=== PATIENT | male | born 1995 | race African-American/Black ===

== ENCOUNTER 2017-01-02 09:25 | Emergency (ER) | payer SELFPAY ==
[~2017-01-02] VITALS: Ht 172.7 cm; Wt 95.3 kg
[~2017-01-02 09:25] MED LIST: IBUPROFEN600 MG ORAL; NKM
[2017-01-02 10:13] VITALS: BP 138/81
--- NOTE | 2017-01-02 10:29 | Emergency Room Report ---
History of Present Illness General Chief Complaint: Upper Extremity Injury Source: Patient Present Illness HPI Patient presents with complaints of trauma to the right hand Mainly the small finger patient reports that he hit a wall he is right-hand dominant Pain is 5/10 worse with movement Denies any chest pain or shortness of breath denies any other injury He reports discomfort to the fourth proximal metacarpal as well Denies any neuropathy Allergies: Coded Allergies: No Known Allergies (Unverified , 11/10/13) Patient History Past Medical History: see triage record Pertinent Family History: none Reviewed Nursing Documentation: PMH: Agreed, PSxH: Agreed Nursing Documentation-PMH Past Medical History: No History, Except For Review of Systems All Other Systems: negative except mentioned in HPI Physical Exam Vital Signs Date Time Temp Pulse Resp B/P Pulse Ox O2 Delivery O2 Flow Rate FiO2 01/02/17 09:35 98.2 96 16 138/81 100 Room Air Sp02 EP Interpretation: reviewed, normal General Appearance: well appearing, no apparent distress Head: normocephalic, atraumatic Eyes: bilateral eye EOMI, bilateral eye PERRL ENT: normal pharynx Neck: full range of motion, supple Respiratory: lungs clear, normal breath sounds Cardiovascular #1: regular rate, rhythm Musculoskeletal: other - Tender on flexion distally of the right small finger has some mild discomfort proximally on the fourth finger as well small abrasion on the index finger on the same right hand neurologically and neurovascularly intact otherwise, Neurologic: alert, oriented x3, responsive Skin: normal color, no rash, warm/dry Lymphatic: no adenopathy Procedures Splinting Splinting : Consent: Verbal Location: Right small finger Pre-Made Type: metal Splint: finger splint Pre-Proc Neuro Vasc Exam: normal Post-Proc Neuro Vasc Exam: normal Patient Tolerated: Well Complications: None Medical Decision Making Diagnostic Impression: Primary Impression: finger sprain ER Course Patient's x-ray imaging at this time is negative no signs of any other cuts or lacerations patient was provided with a splint for symptomatic improvement And discharged in stable condition Other X-Ray Diagnostic Results Other X-Ray Diagnostic Results : EP Interpretation: Yes Findings: no fractures, no dislocation, no soft tissue swelling Number of Views: 3 - right hand Last Vital Signs Date Time Temp Pulse Resp B/P Pulse Ox O2 Delivery O2 Flow Rate FiO2 01/02/17 10:13 98.2 78 16 138/81 100 Room Air Status: improved Disposition: HOME, SELF-CARE Condition: Improved Patient Instructions: Finger Sprain, [id number] Additional Instructions: Patient is provided with the discharge instructions notified to follow up with primary doctor in the next 2-3 days otherwise return to the er with any worsening symptoms. Please note that this report is being documented using DRAGON technology. This can lead to erroneous entry secondary to incorrect interpretation by the dictating instrument. ALEE LAY D.O. Jan 02, 2017 10:29
[2017-01-02 10:36] VITALS: BP 138/81
--- NOTE | 2017-01-03 07:59 | Diagnostic Imaging Report ---
Indications: Right hand pain Technique: 3 views of the right hand. Findings: Comparison: 01/30/2016. Overlapping fingers on lateral view limits evaluation. No fracture, dislocation, lytic destruction, periosteal reaction, surrounding soft tissue swelling, or other acute changes are demonstrated. No deformity, alignment abnormality, arthritic change, soft tissue calcification, or other chronic changes are demonstrated. IMPRESSION: Negative right hand series, limited as described.
== END 2017-01-02 10:45 | disposition home or self-care (01) ==
LOC: EMR 09:45
DX: S63.616A Unspecified sprain of right little finger, initial encounter (principal); S63.690A Other sprain of right index finger, initial encounter; S60.410A Abrasion of right index finger, initial encounter; W22.01XA Walked into wall, initial encounter; Y92.9 Unspecified place or not applicable
CPT/HCPCS: 29130; 99283

== ENCOUNTER 2017-02-19 12:14 | Emergency (ER) | payer OTHER ==
[~2017-02-19] VITALS: Ht 175.3 cm; Wt 79.4 kg
[2017-02-19] MEDS ORDERED: Norco 5mg/325mg tab ORAL ONE (13:00)
[2017-02-19] MEDS ORDERED: TRAMADOL HCL50 MG ORAL (13:27)
[2017-02-19] MEDS ORDERED: IBUPROFEN600 MG ORAL (13:27)
[2017-02-19 13:30] VITALS: BP 142/88
[2017-02-19 13:58] VITALS: BP 142/88
--- NOTE | 2017-02-19 14:19 | Diagnostic Imaging Report ---
Indication: PAIN Technique: 3 views right hand Comparison: none Findings: There is a minimally displaced slightly distracted fracture of the fifth metacarpal neck. Surrounding soft tissue swelling. No other acute fractures. No dislocations. Joint spaces are preserved. Impression: Positive for fifth metacarpal fracture Findings discussed by phone with Dr. Ibrahim in the emergency room at the time of interpretation
--- NOTE | 2017-02-19 20:46 | Emergency Room Report ---
History of Present Illness General Chief Complaint: Upper Extremity Injury Source: Patient Present Illness HPI The patient is a 21-year-old male presenting for right hand pain. The patient states that he was skateboarding and fell onto his right hand with a closed fist. He is now complaining of 10 out of 10 dull ache. Pain does not radiate. Pain worse with touch. He admits to previous injury of the hand but is unsure of what it was. He denies any other injury. He denies any other symptoms Allergies: Coded Allergies: No Known Allergies (Unverified , 11/10/13) Patient History Past Medical History: see triage record Pertinent Family History: none Reviewed Nursing Documentation: PMH: Agreed, PSxH: Agreed Nursing Documentation-PMH Past Medical History: No Stated History Review of Systems All Other Systems: negative except mentioned in HPI Physical Exam Vital Signs Date Time Temp Pulse Resp B/P Pulse Ox O2 Delivery O2 Flow Rate FiO2 02/19/17 12:34 98.8 97 16 146/90 99 Room Air Sp02 EP Interpretation: reviewed, normal General Appearance: no apparent distress, alert, GCS 15, non-toxic Head: normocephalic, atraumatic Eyes: bilateral eye PERRL, bilateral eye normal inspection Musculoskeletal: normal range of motion, swelling, tender - TTP over the R distal 5th MC Neurologic: alert, oriented x3, responsive, motor strength/tone normal, sensory intact, speech normal Psychiatric: judgement/insight normal, memory normal, mood/affect normal, no suicidal/homicidal ideation Skin: normal color, no rash, warm/dry, well hydrated Lymphatic: no adenopathy Procedures Splinting Splinting : Consent: Verbal Location: R hand Hand-Made Type: plaster Splint: ulnar Pre-Proc Neuro Vasc Exam: normal Post-Proc Neuro Vasc Exam: normal Patient Tolerated: Well Complications: None Medical Decision Making PA Attestation Dr. Ibrahim is my supervising physician. Patient management was discussed with my supervising physician Diagnostic Impression: Primary Impression: Boxers fracture Qualified Codes: S62.309A - Unspecified fracture of unspecified metacarpal bone, initial encounter for closed fracture ER Course The patient is a 21-year-old male presenting for right hand pain. Ddx considered include but not limited to sprain/strain, fracture, contusion Physical exam: No apparent distress There is edema and tenderness to palpation over the right distal fifth metacarpal. Full active range of motion Radial pulse 2+ X-ray reveals a fracture of the distal fifth metacarpal Ulnar gutter splint is placed The patient is discharged home with pain medications. He'll follow up with PMD and possibly orthopedics. ER precautions given Chest X-Ray Diagnostic Results Chest X-Ray Ordered: No Other X-Ray Diagnostic Results # of Views/Limited Vs Complete: 3 View Interpretation: no dislocation, no soft tissue swelling, other - Fx of 5th Indication: Pain Impression: Other - fracture Date Electronically Signed: Feb 19, 2017 Time Electronically Signed: 20:45 Electronically Signed by: Dr. Patrice DALY Scribe Text I am acting as scribe for my supervising physician. My supervising physician's interpretation of the R hand xrays are there is a fracture of the 5th Last Vital Signs Date Time Temp Pulse Resp B/P Pulse Ox O2 Delivery O2 Flow Rate FiO2 02/19/17 13:58 98.8 78 17 142/88 100 Room Air Status: improved Disposition: HOME, SELF-CARE Condition: Improved Scripts Ibuprofen* (MOTRIN*) 600 Mg Tablet 600 MG ORAL Q8H Y for For Pain, #30 TAB 0 Refills Prov: JUAN JOSÉ JUSTICE P.A. 02/19/17 Tramadol Hcl* (ULTRAM*) 50 Mg Tablet 50 MG ORAL Q6H Y for For Pain, #30 TAB 0 Refills Prov: JUAN JOSÉ JUSTICE P.A. 02/19/17 Referrals: [facility],REFERRING (PCP) Patient Instructions: Boxer's Fracture Additional Instructions: I discussed my findings with the patient. All questions and concerns have been answered. Treatment and medication compliance have been addressed. I advised the patient that they need to follow up with PMD in 3-5 days. Return to ED if pain remains or worsens, numbness or tingling occurs, new rash is noticed, fever is noticed, or if needed for any reason. Patient verbalized understanding of discharge instructions. JUAN JOSÉ JUSTICE Feb 19, 2017 20:46
== END 2017-02-19 13:58 | disposition home or self-care (01) ==
LOC: EMR 12:56
DX: S62.306A Unspecified fracture of fifth metacarpal bone, right hand, initial encounter for closed fracture (principal); W18.30XA Fall on same level, unspecified, initial encounter; Y93.51 Activity, roller skating (inline) and skateboarding; Y99.9 Unspecified external cause status
CPT/HCPCS: 29125; 99283

== ENCOUNTER 2017-08-15 06:19 | Emergency (ER) | payer MEDICAID, OTHER ==
[~2017-08-15] VITALS: Ht 175.3 cm; Wt 84.4 kg
[~2017-08-15 06:19] MED LIST changes: +TRAMADOL HCL50 MG ORAL
[2017-08-15] MEDS ORDERED: IBUPROFEN600 MG ORAL (06:41)
[2017-08-15] MEDS ORDERED: CLINDAMYCIN HC300 MG ORAL (06:41)
[2017-08-15] MEDS ORDERED: Clindamycin 150mg cap ORAL SCH (06:45)
--- NOTE | 2017-08-15 06:45 | Emergency Room Report ---
History of Present Illness General Chief Complaint: Pain Source: Patient Present Illness HPI 21-year-old male walks in with right-sided facial swelling that occurred overnight States that yesterday was normal this morning woke up right-sided face was swollen denies any fever or chills States has a tooth that fell out a couple weeks ago and the area on the upper right side of his mouth Hasn't been to the dentist in a while No pus drainage from mouth No history of diabetes or previous abscess Allergies: Coded Allergies: No Known Allergies (Unverified , 11/10/13) Patient History Past Medical History: none Past Surgical History: none Pertinent Family History: none Social History: Denies: smoking, alcohol use, drug use Immunizations: UTD Reviewed Nursing Documentation: PMH: Agreed, PSxH: Agreed Review of Systems All Other Systems: negative except mentioned in HPI Physical Exam Vital Signs Date Time Temp Pulse Resp B/P (MAP) Pulse Ox O2 Delivery O2 Flow Rate FiO2 08/15/17 06:23 98.1 88 16 143/98 96 Room Air Sp02 EP Interpretation: reviewed, normal General Appearance: normal inspection, well appearing, no apparent distress, alert, GCS 15, non-toxic Head: normocephalic, atraumatic Eyes: bilateral eye PERRL, bilateral eye EOMI ENT: normal ENT inspection, hearing grossly normal, normal pharynx, normal voice, other - Upper right side of mouth lateral to upper row of teeth there is a 1 cm abscess next to a empty socket, tender to palpation Neck: normal inspection, full range of motion, supple, no bony tend Respiratory: normal inspection, lungs clear, normal breath sounds, no respiratory distress, no retraction, no wheezing Cardiovascular #1: regular rate, rhythm, no edema Gastrointestinal: normal inspection, normal bowel sounds, non tender, soft, no guarding, no hernia Genitourinary: no CVA tenderness Musculoskeletal: normal inspection, back normal, normal range of motion, Yue' s Sign negative Neurologic: normal inspection, alert, oriented x3, responsive, five piece expansion maker hand III-XII nml as tested, speech normal Psychiatric: normal inspection, judgement/insight normal, mood/affect normal Skin: normal inspection, normal color, no rash Medical Decision Making Diagnostic Impression: Primary Impression: Oral abscess ER Course 21-year-old male with right-sided upper mouth oral abscess Possibly related to poor dentition Signs stable Afebrile No fever or chills, not septic or ill-appearing Prescription for clindamycin and ibuprofen provided ER course: Patient has remained stable during ED stay. Patient is to be discharged to home. Prescriptions given are motrin, clinda Patient is instructed to follow up with their primary care doctor within 5 days. Strict return precautions discussed with patient such as fever, chills, worsening/severe pain, nausea, vomiting, which may indicate severe illness. Patient verbalizes understanding and agrees with plan. Please note that this Emergency Department Report was dictated using ID8-Mobileautomatic winder operator technology software, occasionally this can lead to erroneous entry secondary to interpretation by the dictation equipment Last Vital Signs Date Time Temp Pulse Resp B/P (MAP) Pulse Ox O2 Delivery O2 Flow Rate FiO2 08/15/17 06:23 98.1 88 16 143/98 96 Room Air Status: improved Disposition: HOME, SELF-CARE Condition: Improved Scripts Ibuprofen* (MOTRIN*) 600 Mg Tablet 600 MG ORAL THREE TIMES A DAY for For Pain for 7 Days, #30 TAB 0 Refills Prov: AMALIA DOUGLAS M.D. 08/15/17 Clindamycin Hcl (CLINDAMYCIN HCL) 300 Mg Capsule 300 MG ORAL THREE TIMES A DAY for 7 Days, #21 CAP Prov: AMALIA DOUGLAS M.D. 08/15/17 Patient Instructions: Dental Abscess, [id number] Additional Instructions: - Take ALL antibiotics until finished - Take motrin every 8 hours with food as needed for pain - Return to ER if no improvement in 5 days AMALIA DOUGLAS M.D. Aug 15, 2017 06:45
[2017-08-15 07:00] VITALS: BP 137/92
[2017-08-15 07:01] VITALS: BP 143/98
== END 2017-08-15 07:00 | disposition home or self-care (01) ==
LOC: EMR 06:58
DX: K12.2 Cellulitis and abscess of mouth (principal)
CPT/HCPCS: 99283

== ENCOUNTER 2018-02-13 10:46 | Emergency (ER) | payer OTHER ==
[~2018-02-13] VITALS: Ht 175.3 cm; Wt 97.5 kg
[~2018-02-13 10:46] MED LIST changes: +CLINDAMYCIN HC300 MG ORAL
--- NOTE | 2018-02-13 11:20 | Emergency Room Report ---
History of Present Illness General Chief Complaint: Lower Extremity Injury Source: Patient Present Illness HPI Patient is a 22-year-old male who presented after increased right-sided ankle pain. The patient reports injuring his right ankle while skateboarding. He reports inverting his right ankle. He reports initially being able to ambulate. Patient subsequent not able to bear weight on his ankle. The patient denies any numbness or tingling. The patient noticed increased swelling. The pain is described as a throbbing sensation. The pain is localized to the right side of the ankle. Allergies: Coded Allergies: No Known Allergies (Unverified , 11/10/13) Patient History Past Medical History: see triage record Reviewed Nursing Documentation: PMH: Agreed; PSxH: Agreed Nursing Documentation-PMH Past Medical History: No Stated History Review of Systems All Other Systems: negative except mentioned in HPI Physical Exam Vital Signs Date Time Temp Pulse Resp B/P (MAP) Pulse Ox O2 Delivery O2 Flow Rate FiO2 02/13/18 10:57 98.1 82 16 147/90 98 Room Air 98.1 General Appearance: well appearing, no apparent distress, alert, GCS 15 Head: normocephalic, atraumatic ENT: hearing grossly normal, normal voice Neck: full range of motion, supple Respiratory: no respiratory distress, speaking full sentences Gastrointestinal: normal inspection Musculoskeletal: back normal, digits/nails normal, gait/station normal, no calf tenderness, decreased range of mation, swelling Neurologic: normal inspection, alert, oriented x3, responsive, normal gait Psychiatric: mood/affect normal Skin: no rash Medical Decision Making Diagnostic Impression: Primary Impression: Inversion sprain of right ankle ER Course Patient presented for ankle pain. Differential diagnosis included was not limited to sprain, fracture, dislocation, cellulitis, vascular insufficiency. X -ray imaging of the ankle was ordered. X-ray imaging of the right ankle 3 views interpreted by me showed normal bony alignment without evident fracture soft tissue swelling was noted. The patient placed in an Mic wrap and given crutches.The patient is advised to follow up with primary care doctor in 1-2 days. Patient is advised to return if any worsening condition or if any changes in status that are concerning. This report is dictated with [employer]uork paratransit driver software which may occasionally lead to discrepancies related to use of this software. Last Vital Signs Date Time Temp Pulse Resp B/P (MAP) Pulse Ox O2 Delivery O2 Flow Rate FiO2 02/13/18 11:11 98.1 02/13/18 10:57 82 16 147/90 98 Room Air Status: improved Disposition: HOME, SELF-CARE Condition: Stable Scripts Ibuprofen* (MOTRIN*) 600 Mg Tablet 600 MG ORAL Q8H PRN for For Pain, #30 TAB 0 Refills Prov: Julio C Balderas MD 02/13/18 Julio C Balderas MD Feb 13, 2018 11:20
[2018-02-13] MEDS ORDERED: IBUPROFEN600 MG ORAL (12:27)
[2018-02-13 13:12] VITALS: BP 147/90
--- NOTE | 2018-02-14 08:22 | Diagnostic Imaging Report ---
Indication: Reason For Exam: PAIN Technique: 3 views of the right ankle Comparison: Findings: No acute fractures. No dislocations. Joint spaces are preserved. Normal mineralization. No radiopaque foreign body. Impression: Negative
== END 2018-02-13 13:00 | disposition home or self-care (01) ==
LOC: EMR 11:23
DX: S93.401A Sprain of unspecified ligament of right ankle, initial encounter (principal); X50.1XXA Overexertion from prolonged static or awkward postures, initial encounter; Y93.51 Activity, roller skating (inline) and skateboarding; Y92.9 Unspecified place or not applicable
CPT/HCPCS: 99283

== ENCOUNTER → 2018-04-11 | Day surgery (SDC) | payer OTHER ==
[2018-04-11] VITALS (11 sets, daily range): BP systolic 139–164; BP diastolic 91–112
[~2018-04-11] VITALS: Ht 175.3 cm; Wt 97.5 kg
[~2018-04-11] MED LIST changes: +Bacitracin 50000 Units Vial ONE; +Bacitracin Oint 15gm Tube TOPIC ONE; +Bupivacaine 0.25% Inj 30ml INJ ONE; +CEPHALEXIN500 MG ORAL; +D5 1/2NS 1,000 ML IV SCH; +DiphenhydrAMINE 50mg/ml Inj IVP PRN; +HYDROcodone/Acetamin 7.5/325 tab ORAL ONE; +HYDROmorphone 1mg/ml Carpuject SUBQ PRN; +Hydrogen Peroxide 473ml Bottle TOPIC ONE; +LR 1000ml 1,000 ML IVLG SCH; +LR 1000ml ONE; +Labetalol 5mg/ml 20ml vial IV ONE; +Labetalol 5mg/ml 20ml vial IV PRN; +Lidocaine 1% MPF 10mg/ml 5ml ONE; +Lidocaine 1% Plain 30 ml INJ ONE; +Meperidine 50mg/ml Inj(FOR RIGORS ONLY) IVP PRN; +Midazolam 2mg/2ml Inj IVP PRN; +Midazolam 2mg/2ml Inj ONE; +Morphine Sulfate 2mg/ml Inj(IV/IM USE ONLY) IVP ONE; +NORCO 10-325 T1 EACH ORAL; +NS Irrig 1000ml ONE; +Norco 5mg/325mg tab ORAL PRN; +PERCOCET 5-3251 EACH ORAL; +Propofol 200mg/20ml IV ONE; +Sterile Water Irrig 1000ml IRRIG ONE; +Succinylcholine 20mg/ml 10ml vial ONE; +Tetanus/Diptheria/Pertussis Vaccine 0.5ml Syr IM ONE; +Tylenol #3 tab (300mg/30mg) ORAL PRN; +ceFAZolin 1gm/50ml Premix 50 ML IV ONE; +fentaNYL 100 mcg/2 mL IV ONE
--- NOTE | 2018-04-11 15:21 | Diagnostic Imaging Report ---
Indication: Pain, laceration after punching glass Technique: 3 views right hand Comparison: none Findings: Numerous radiopaque foreign bodies are seen within the soft tissues of the second digit. No definite underlying bony abnormality is evident. No acute fractures. No dislocations. Impression: No acute bony trauma Positive for radiopaque foreign bodies within the second digit, presumably glass fragments given stated clinical history
--- NOTE | 2018-04-11 16:52 | Emergency Room Report ---
History of Present Illness General Chief Complaint: Laceration Source: Patient Present Illness HPI 22-year-old male presents to the emergency department complaining of 8 out of 10 in severity localized pain, bleeding and swelling to the left index finger. Patient status post punching through a glass. Patient reports numbness along the side of his index finger. He states he is up-to-date with tetanus vaccinations and is not taking blood thinning medications. Movement exacerbates his pain. Allergies: Coded Allergies: No Known Allergies (Unverified , 11/10/13) Patient History Past Medical History: see triage record Past Surgical History: none Pertinent Family History: none Immunizations: UTD Reviewed Nursing Documentation: PMH: Agreed; PSxH: Agreed Nursing Documentation-PMH Past Medical History: No History, Except For Review of Systems All Other Systems: negative except mentioned in HPI Physical Exam Vital Signs Date Time Temp Pulse Resp B/P (MAP) Pulse Ox O2 Delivery O2 Flow Rate FiO2 04/11/18 14:04 98.3 91 18 139/91 98 Room Air 98.2 Sp02 EP Interpretation: reviewed, normal General Appearance: no apparent distress, alert, GCS 15, non-toxic Head: normocephalic, atraumatic ENT: hearing grossly normal, normal voice Neck: full range of motion Respiratory: lungs clear, normal breath sounds, speaking full sentences Cardiovascular #1: regular rate, rhythm, no edema Musculoskeletal: back normal, gait/station normal, normal range of motion, tender - TTP to the PIP joint area of the left index finger, laceration noted. numbness to lateral aspect, limited ROM pasively. normal cap refill Neurologic: alert, oriented x3, responsive, motor strength/tone normal, sensory intact, normal gait, speech normal, grossly normal Psychiatric: judgement/insight normal Skin: normal color, no rash, warm/dry, well hydrated, laceration - to the lateral aspect of the left index finger at the level of the PIP joint area approximately 4.5cm in length Medical Decision Making PA Attestation Dr. james is my supervising Physician whom patient management has been discussed with. Diagnostic Impression: Primary Impression: Digital nerve laceration, finger Qualified Codes: S64.40XA - Injury of digital nerve of unspecified finger, initial encounter Additional Impressions: Laceration of digital artery Qualified Codes: S65.519A - Laceration of blood vessel of unspecified finger, initial encounter Fracture of finger, proximal phalanx, left, open Qualified Codes: S62.641B - Nondisplaced fracture of proximal phalanx of left index finger, initial encounter for open fracture ER Course Pt. presents to the ED c/o laceration to Left index finger, Ddx considered but are not limited to laceration, tendon injury, cellulitis, amputation Vital signs: are WNL, pt. is afebrile H&PE are most consistent with: to the lateral aspect of the left index finger at the level of the PIP joint approximately 4.5cm in length ORDERS: -CBC: hgb: 18.5 -BMP: Unremarkable/WNL ED INTERVENTIONS: - Tetanus vaccination is administered - The wound was copiously irrigated with normal saline unable to visualize obvious fb despite - 2mg Morphine IV -1G Ancef SURGICAL CONSULT: Dr. Marrero - After evaluation determined that Pt. sustained laceration to the digital artery and the digital nerve to the left index finger with retained FB, and Fx to the distal portion of the proximal phalanx -Surgery is recommended. Patient is being admitted for same day surgery. [facility] aware and authorized surgery. Surgery Authorization # [id number] PT. placed NPO Care transferred to Dr. Marrero who will take pt. to OR and subsequently D/C Last Vital Signs Date Time Temp Pulse Resp B/P (MAP) Pulse Ox O2 Delivery O2 Flow Rate FiO2 04/11/18 14:34 98.2 04/11/18 14:31 91 18 139/91 98 Room Air Disposition: ADMITTED INPATIENT - Same Day surgery. Condition: Stable Signed Out To: Dr. Marrero Physician Consult: Dr. Marrero Referrals: [facility] (PCP) Kiki Sosa Apr 11, 2018 16:52
[2018-04-11 17:23] LABS: EOSINOPHILS % (AUTO) 0.7 % (0.0-3.0); HEMATOCRIT 54.6 % (42.0-52.0); LYMPHOCYTES % (AUTO) 25.8 % (20.0-45.0); MEAN CORPUSCULAR VOLUME 90 FL (80-99); MONOCYTES % (AUTO) 15.7 % (1.0-10.0); NEUTROPHILS % (AUTO) 54.8 % (45.0-75.0); PLATELET COUNT 173 K/UL (150-450); RED BLOOD COUNT 6.06 M/UL (4.70-6.10); RED CELL DISTRIBUTION WIDTH 11.3 % (11.6-14.8); WHITE BLOOD COUNT 6.9 K/UL (4.8-10.8)
[2018-04-11 17:33] LABS: HEMOGLOBIN 18.5 G/DL (14.2-18.0)
[2018-04-11 18:07] LABS: ANION GAP 12 mmol/L (5-15); BLOOD UREA NITROGEN 8 mg/dL (7-18); CALCIUM 9.8 MG/DL (8.5-10.1); CARBON DIOXIDE 27 MMOL/L (21-32); CHLORIDE 102 MMOL/L (98-107); POTASSIUM 3.6 MMOL/L (3.5-5.1); SODIUM 141 MMOL/L (136-145)
--- NOTE | 2018-04-11 18:25 | Pre-Procedure Note/Attestation ---
Pre-Procedure Note/Attestation Complete Prior to Procedure Planned Procedure: left Procedure Narrative: Left index finger wound exploration, debridement, and repair of digital nerve, and other injured sturctures Indications for Procedure Pre-Operative Diagnosis: Left index finger laceration and digital nerve/artery injury Attestation I attest that I discussed the nature of the procedure; its benefits; risks and complications; and alternatives (and the risks and benefits of such alternatives ), prior to the procedure, with the patient (or the patient's legal in store marketing representative). I attest that, if there was a reasonable possibility of needing a blood transfusion, the patient (or the patient's legal in store marketing representative) was given the [place] Department [employer] standardized written summary, pursuant to the Felix Armaan Blood Safety Act ([place] Health and Safety Code # 1645, as amended). I attest that I re-evaluated the patient just prior to the surgery and that there has been no change in the patient's H&P, except as documented below: BELÉN ORNELAS M.D. Apr 11, 2018 18:25
--- NOTE | 2018-04-11 19:18 | Anethesia Preoperative Eval ---
Anesthesia Pre-op PMH/ROS General Date of Evaluation: Apr 11, 2018 Time of Evaluation: 18:30 Anesthesiologist: Jessica ASA Score: ASA 1 Mallampati Score Class I : Soft palate, uvula, fauces, pillars visible Class II: Soft palate, uvula, fauces visible Class III: Soft palate, base of uvula visible Class IV: Only hard plate visible Mallampati Classification: Class II Surgeon: Janes Diagnosis: Digital nerve laceration Surgical Procedure: I&D, digital nerve repair Anesthesia History: none Allergies: Coded Allergies: No Known Allergies (Unverified , 11/10/13) Medications: see eMAR Past Medical History Cardiovascular: Reports: HTN - Possible undiagnosed HTN; Denies: CAD, HI, valve dz, arrhythmia, other Pulmonary: Denies: asthma, COPD, LESLY, other Gastrointestinal/Genitourinary: Denies: GERD, CRI, ESRD, other Neurologic/Psychiatric: Denies: dementia, CVA, depression/anxiety, TIA, other Endocrine: Denies: DM, hypothyroidism, steroids, other HEENT: Denies: cataract (L), cataract (R), glaucoma, EMMONAK (L), EMMONAK (R), other Hematology/Immune: Denies: anemia, DVT, bleeding disorder, other Musculoskeletal/Integumentary: Denies: OA, RA, DJD, DDD, edema, other PMH Narrative: Undiagnosed HTN PSxH Narrative: None Anesthesia Pre-op Phys. Exam Physician Exam Last Vital Signs Date Time Temp Pulse Resp B/P (MAP) Pulse Ox O2 Delivery O2 Flow Rate FiO2 04/11/18 18:29 98.2 91 18 145/98 98 Room Air 208.8 75 Constitutional: NAD Neurologic: CN 2-12 intact Cardiovascular: RRR, no M/R/G Respiratory: CTA Gastrointestinal: S/NT/ND Airway Exam Mallampati Score: Class II MO: full ROM: full Teeth: intact Anesthesia Pre-op A/P Labs Hematology Test 04/11/18 17:04 White Blood Count 6.9 K/UL (4.8-10.8) Red Blood Count 6.06 M/UL (4.70-6.10) Hemoglobin 18.5 G/DL (14.2-18.0) *H Hematocrit 54.6 % (42.0-52.0) H Mean Corpuscular Volume 90 FL (80-99) Mean Corpuscular Hemoglobin 30.5 PG (27.0-31.0) Mean Corpuscular Hemoglobin Concent 33.8 G/DL (32.0-36.0) Red Cell Distribution Width 11.3 % (11.6-14.8) L Platelet Count 173 K/UL (150-450) Mean Platelet Volume 7.0 FL (6.5-10.1) Neutrophils (%) (Auto) 54.8 % (45.0-75.0) Lymphocytes (%) (Auto) 25.8 % (20.0-45.0) Monocytes (%) (Auto) 15.7 % (1.0-10.0) H Eosinophils (%) (Auto) 0.7 % (0.0-3.0) Basophils (%) (Auto) 3.0 % (0.0-2.0) H Chemistry Test 04/11/18 17:04 Sodium Level 141 MMOL/L (136-145) Potassium Level 3.6 MMOL/L (3.5-5.1) Chloride Level 102 MMOL/L (98-107) Carbon Dioxide Level 27 MMOL/L (21-32) Anion Gap 12 mmol/L (5-15) Blood Urea Nitrogen 8 mg/dL (7-18) Creatinine 1.0 MG/DL (0.55-1.30) Estimat Glomerular Filtration Rate > 60 mL/min (>60) Glucose Level 95 MG/DL (74-106) Calcium Level 9.8 MG/DL (8.5-10.1) Risk Assessment & Plan Assessment: Healthy male with laceration to left index finger Plan: GA, LMA Status Change Before Surgery: No Pre-Antibiotics Drug: Ancef Given Within 1 Hr of Incision: Yes Time Given: 18:50 Felix Lopez MD Apr 11, 2018 19:18
--- NOTE | 2018-04-11 19:20 | Immediate Post-Op Evaluation ---
Immediate Post-Op Evalulation Immediate Post-Op Evalulation Procedure: I&D left index finger, digital nerve repair Date of Evaluation: Apr 11, 2018 Time of Evaluation: 20:20 IV Fluids: 400 Blood Pressure Systolic: 162 Blood Pressure Diastolic: 110 Pulse Rate: 81 Respiratory Rate: 19 O2 Sat by Pulse Oximetry: 100 Temperature (Fahrenheit): 97.0 Pain Score (1-10): 0 Nausea: No Vomiting: No Complications No complication Patient Status: awake, patent, none Hydration Status: adequate Drug: Ancef Given Within 1 Hr of Incision: Yes Time Given: 18:50 Felix Lopez MD Apr 11, 2018 19:20
--- NOTE | 2018-04-11 20:12 | Brief Operative Note ---
Immediate Post Operative Note Operative Note Chief Complaint: Left index finger laceration Pre-op Diagnosis: Left index finger laceration and digital nerve/artery injury Procedure: Left index finger wound debridement, repair of ulnar digital nerve and artery, repair of 6 cm laceration, repair of dorsal PIP joint capsule and extensor tendon, repair of 2 cm dorsal finger laceration, removal of lots of glass shards from wound Post-op Diagnosis: Left index finger 6 cm volar and 2 cm dorsal lacerations, complete transection of left index finger ulnar digital nerve and artery, laceration of dorsal PIP joint capsule and partial laceration of left index finger extensor tendon, removal of lots of glass shards from wounds Post-op Diagnosis: same as pre-op plus Findings: consistent w/pre-op dx studies Surgeon: Belén Ornelas [employer] Planning Paralegal: None Additional Surgeons: None Anesthesia: general Specimen: yes Complications: yes Condition: stable Fluids: 1 l LR Estimated Blood Loss: minimal Drains: none Packing: None Tourniquet time: 45 - min Implant(s) used?: No BELÉN ORNELAS M.D. Apr 11, 2018 20:12
--- NOTE | 2018-04-12 02:00 | History and Physical Report ---
DATE OF ADMISSION: 04/11/2018 ATTENDING PHYSICIAN: Satinder Marrero M.D. REASON FOR ADMISSION: Laceration of the left index finger with numbness of the digit. HISTORY OF PRESENT ILLNESS: The patient is a 22-year-old male, who was unhappy and upset at home when he punched his left hand through a glass window. He sustained a curvilinear laceration on volar and ulnar aspect of the left index finger with associated numbness distal to that area. He was subsequently brought to [facility] emergency room for evaluation and treatment. Other than pain, discomfort, and bleeding, he had no other complaints. PAST MEDICAL HISTORY: History of diet-controlled high blood pressure, but does not have any right now. No other medical problems other than that. PAST SURGICAL HISTORY: None. ALLERGIES TO MEDICATIONS: None. CURRENT MEDICATIONS: None. REVIEW OF SYSTEMS: The patient's 12-point review of systems negative other than as noted in the history of present illness. PHYSICAL EXAMINATION: GENERAL: The patient is comfortable, resting on the stretcher, in no acute distress. Hemodynamically stable. Afebrile. HEENT: Head is normocephalic and atraumatic without any lacerations or bony step-offs. Pupils are equal, round, and reactive to light. Extraocular motion intact and symmetrical bilaterally. External ears, nose, mouth, and oral cavity all appear normal. CHEST: Clear to auscultation. No wheezes, rales, or crackles. CARDIOVASCULAR: Normal sinus rhythm. Normal S1 and S2. No murmurs, rubs, or gallops. ABDOMEN: Soft, nontender, and nondistended. No guarding, rebound, or rigidity. EXTREMITIES: Full range of motion. There is no gross deformities other than the left index finger. Left index finger has a curvilinear laceration that measures approximately 3 cm in length with a flap raised along the volar and ulnar aspects of the left index finger. There is no numbness on the radial side of the finger, but distal to the laceration on the ulnar side, there is numbness. Unable to explore the wound secondary to the patient's pain. The patient is also having difficulty extending or flexing the finger secondary to pain. Capillary refill appears to be 2+ distally. ASSESSMENT AND PLAN: The patient is a 22-year-old male with likely concussion of his ulnar digital nerve and artery of his left index finger and indeterminate whether there is any tendon injury as well secondary to poor physical exam and the patient's discomfort. His situation was discussed with the patient. He understands that he has injured, likely transected digital nerve and possible artery and possible tendon injury, which needs to be explored and to evaluate the full extent of his injury and all the injured structures need to be repaired. He understands and agrees with this and gives his informed consent. Arrangements will be made to take him to the OR to explore and fix all injured structures. Satinder Marrero M.D. DR: DASHA JOB#: [id number] CC: TRESA
--- NOTE | 2018-04-12 04:15 | Operative Note - Dictated ---
DATE OF OPERATION: 04/11/2018 PREOPERATIVE DIAGNOSIS: Left index finger complex laceration. POSTOPERATIVE DIAGNOSES: 1. Left index finger laceration along the volar and dorsal aspect of the finger in the area of the proximal phalanx. 2. Disrupted ulnar digital nerve and artery of the left index finger, open wound with copious amounts of glass shards within the wound, lacerated PIP joint capsule along the dorsal aspect of the joint and partial laceration of the left extensor tendon. PROCEDURE: 1. Left index finger wound debridement and removal of copious amount of glass shards from within the wound. 2. Repair of ulnar digital nerve and artery. 3. Repair of PIP joint capsule. 4. Repair of left index finger extensor tendon. 5. Repair of left index finger volar laceration and dorsal laceration. SURGEON: Satinder Marrero M.D. PUBLIC RELATIONS WRITER: None. ANESTHESIA: General anesthesia. COMPLICATION: None. TOURNIQUET TIME: 45 minutes. ESTIMATED BLOOD LOSS: Minimal. FINDINGS DURING THIS PROCEDURE: A 6 cm volar U-shaped curvilinear laceration along the radial and volar aspect of the left index finger over the area of the proximal phalanx. A 2 cm laceration along the dorsum of the left index finger directly over the PIP joint, complete disruption of the ulnar digital nerve and artery. Flexor tendons with copious amounts of glass shards and fragments throughout the joint and next to the flexor tendons there was disruption of the tendon sheath and no laceration of the flexor tendon. Partial laceration of the PIP joint capsule and partial laceration of the left index finger tendon at the PIP joint dorsum. OPERATIVE PROCEDURE DONE IN DETAIL: The patient brought into the operating room, prepped and draped in the usual sterile fashion. After general anesthesia was induced, a tourniquet was placed on the left arm non-sterilely. After the left forearm and hand had been prepped and draped in the usual sterile fashion, an Esmarch bandage was then used to exsanguinate the left hand and arm. Once the extremity were exsanguinated, the tourniquet was inflated to 250 mmHg. Esmarch bandage was released. The wound was explored and found to have multiple copious amounts of glass shards and fragments in the depths of the wound. The glass fragments were carefully picked out using Brown Adson forceps. After all the glass fragments were debrided and removed from the wound, the wound was copiously irrigated using normal saline with antibiotics. Once the left index finger was cleaned up, it was obvious that there was an U-shaped 6 cm laceration along the radial volar aspect of the finger that extends down to the extensor tendon sheath with visible extensor tendons at the base of the wound. The tendon sheath was partially cut. Along the dorsum of the finger, there was an infected laceration directly over the PIP joint with a laceration in the PIP joint capsule as well as a partial laceration of the extensor tendon that traverses in this area. After both wounds were copiously irrigated using normal saline with antibiotics, I proceeded to dissect out the radial volar wound and identified and carefully dissected out the ulnar volar side of the finger. I then carefully dissected out the ulnar digital artery and nerve at the proximal and distal end. Once they were freed up, the cut ends of the artery and nerve were mobilized so that the ends bridged the gaps between the two ends without any tension. The ends of the ulnar digital nerve and digital artery were trimmed and freshened up using micro scissors. The end of the artery and nerve were also carefully cleaned up using micro scissors and micro forceps in preparation for reanastomosis. Once both ends were cleaned, and mobilized and free, 8-0 interrupted nylon braulio-neural sutures were used to repair the digital nerve. Once that was completed using multiple interrupted sutures circumferentially, then I used a 10-0 nylon to repair the digital artery. After 4 sutures were placed, the tourniquet was released and the digital artery was double checked for pulsatile flow, which was present and anastomosis seemed to be patent. Once that was completed, the surrounding soft tissue laceration was closed in a single layer using 3-0 nylon vertical mattress sutures to anchor the corners of the flaps that had been raised and running continuous 3-0 nylon suture was used to close the length of the laceration. Once this was completed, the finger was kept in flexion to decrease the tension off the digital artery and digital nerve. Along the dorsum of the left index finger, there is an open wound over the PIP joint. Within the wound, you could see a laceration in the joint capsule with poor muscle and also partial transection of the extensor tendon. The joint capsules were repaired using 4-0 Monocryl with interrupted sutures. The extensor tendon was repaired using 4-0 Mersilene [id number] sutures. Of note, the capsule and the extensor tendon was repaired and the laceration of the skin was closed using 3-0 nylon sutures. At the end of the case, a dorsal blocking splint was placed over the left index finger to keep it from fully extending and allowing the nearly anastomosed tendon and nerve to heal. Bulky splint dressing was then placed over the left hand for immobilization of the left index finger. The patient tolerated the procedure well without any problems. The patient was extubated in the operating room and transferred to the postanesthesia care unit in stable condition. Satinder Marrero M.D. DR: DASHA JOB#: [id number] CC: TRESA
== END | disposition home or self-care (01) ==
LOC: EMR 14:23 → SUR 18:00
DX: S64.491A Injury of digital nerve of left index finger, initial encounter (principal); S65.511A Laceration of blood vessel of left index finger, initial encounter; S66.321A Laceration of extensor muscle, fascia and tendon of left index finger at wrist and hand level, initial encounter; W25.XXXA Contact with sharp glass, initial encounter; W45.8XXA Other foreign body or object entering through skin, initial encounter; Y92.89 Other specified places as the place of occurrence of the external cause; Y99.8 Other external cause status; I10 Essential (primary) hypertension; Z23 Encounter for immunization
CPT/HCPCS: 26418; 35207; 36415; 64836; 73130; 80048; 85025; 90471; 90715; J0690; J2001; J2250; J2270; J2405; J2704; J3010; J3490; J7120; 94003; 94150

== ENCOUNTER 2018-04-17 08:25 | Emergency (ER) | payer OTHER ==
[~2018-04-17] VITALS: Ht 175.3 cm; Wt 97.5 kg
[~2018-04-17 08:25] MED LIST changes: -Bacitracin 50000 Units Vial ONE; -Bacitracin Oint 15gm Tube TOPIC ONE; -Bupivacaine 0.25% Inj 30ml INJ ONE; -CEPHALEXIN500 MG ORAL; -D5 1/2NS 1,000 ML IV SCH; -DiphenhydrAMINE 50mg/ml Inj IVP PRN; -HYDROcodone/Acetamin 7.5/325 tab ORAL ONE; -HYDROmorphone 1mg/ml Carpuject SUBQ PRN; -Hydrogen Peroxide 473ml Bottle TOPIC ONE; -LR 1000ml 1,000 ML IVLG SCH; -LR 1000ml ONE; -Labetalol 5mg/ml 20ml vial IV ONE; -Labetalol 5mg/ml 20ml vial IV PRN; -Lidocaine 1% MPF 10mg/ml 5ml ONE; -Lidocaine 1% Plain 30 ml INJ ONE; -Meperidine 50mg/ml Inj(FOR RIGORS ONLY) IVP PRN; -Midazolam 2mg/2ml Inj IVP PRN; -Midazolam 2mg/2ml Inj ONE; -Morphine Sulfate 2mg/ml Inj(IV/IM USE ONLY) IVP ONE; -NORCO 10-325 T1 EACH ORAL; -NS Irrig 1000ml ONE; -Norco 5mg/325mg tab ORAL PRN; -PERCOCET 5-3251 EACH ORAL; -Propofol 200mg/20ml IV ONE; -Sterile Water Irrig 1000ml IRRIG ONE; -Succinylcholine 20mg/ml 10ml vial ONE; -Tetanus/Diptheria/Pertussis Vaccine 0.5ml Syr IM ONE; -Tylenol #3 tab (300mg/30mg) ORAL PRN; -ceFAZolin 1gm/50ml Premix 50 ML IV ONE; -fentaNYL 100 mcg/2 mL IV ONE
[2018-04-17] MEDS ORDERED: CEPHALEXIN500 MG ORAL (08:37)
[2018-04-17] MEDS ORDERED: PERCOCET 5-3251 EACH ORAL (08:37)
[2018-04-17] MEDS ORDERED: IBUPROFEN600 MG ORAL (09:17)
[2018-04-17] MEDS ORDERED: NORCO 10-325 T1 EACH ORAL (09:17)
[2018-04-17 09:34] VITALS: BP 128/80
[2018-04-17 09:44] VITALS: BP 122/76
--- NOTE | 2018-04-17 09:46 | Emergency Room Report ---
History of Present Illness General Chief Complaint: Wound Recheck/Suture Removal Source: Patient Present Illness HPI Patient presents with complain of some discomfort to his left hand Patient had surgery last week Secondary to significant trauma tendon and nerve injury Patient reports that initially he had [facility] coverage However has not been able to follow as he was told that his coverage had terminated Denies any chest pain denies any fevers Patient has not had the dressing changed since the procedure Allergies: Coded Allergies: No Known Allergies (Unverified , 11/10/13) Patient History Past Medical History: see triage record Pertinent Family History: none Reviewed Nursing Documentation: PMH: Agreed; PSxH: Agreed Nursing Documentation-PMH Past Medical History: No History, Except For Hx Asthma: No - bronchitis Review of Systems All Other Systems: negative except mentioned in HPI Physical Exam Vital Signs Date Time Temp Pulse Resp B/P (MAP) Pulse Ox O2 Delivery O2 Flow Rate FiO2 04/17/18 08:30 98.1 78 14 128/80 100 Room Air 98.1 Sp02 EP Interpretation: reviewed, normal General Appearance: well appearing, no apparent distress Head: normocephalic, atraumatic Eyes: bilateral eye PERRL, bilateral eye EOMI ENT: normal pharynx, no angioedema Neck: supple Respiratory: lungs clear Cardiovascular #1: regular rate, rhythm Gastrointestinal: non tender, soft Musculoskeletal: other - After removing of the dressing on the left hand, patient has healing process of the digit, sutures are in place, the area is bent at 45, there is some discharge from the area Neurologic: alert, oriented x3 Skin: other - Significant postoperative changes from recent surgery, no obvious pustule discharge sutures in place Lymphatic: no adenopathy Procedures Additional Procedure Procedure Narrative Dressing change of the hand, antibiotic ointment was applied, Kerlix and Mic wrap applied Medical Decision Making Diagnostic Impression: Primary Impression: Encounter for wound re-check Additional Impressions: Laceration of digital artery Digital nerve laceration, finger ER Course The dressing is removed there is healing process ongoing Patient has on review of records significant nerve and tendon trauma Further investigation/interrogation was not performed at the digit itself Dressing was replaced with antibiotic ointment as well The splint is left in place I did make contact with the plastic hand specialist who performed the case And he will follow in his office in the next one to 2 days Last Vital Signs Date Time Temp Pulse Resp B/P (MAP) Pulse Ox O2 Delivery O2 Flow Rate FiO2 04/17/18 08:30 98.1 78 14 128/80 100 Room Air 98.1 Status: improved Disposition: HOME, SELF-CARE Condition: Improved Scripts Ibuprofen* (MOTRIN*) 600 Mg Tablet 600 MG ORAL Q8H PRN for For Pain, #30 TAB 0 Refills Prov: Augusto Begum DO 04/17/18 Hydrocodone Bit/Acetaminophen 10-325* (NORCO 10-325*) 1 Each Tablet 1 TAB ORAL Q6H PRN for For Pain, #14 TAB 0 Refills PRN PAIN Prov: Augusto Begum DO 04/17/18 Referrals: BELÉN ORNELAS M.D. Patient Instructions: Wound Check Additional Instructions: Follow-up with referred physician who performed her procedure in the next 2 days return with any concerns Augusto Begum DO Apr 17, 2018 09:46
== END 2018-04-17 09:50 | disposition home or self-care (01) ==
LOC: EMR 09:25
DX: Z48.02 Encounter for removal of sutures (principal); S65.51 Laceration of blood vessel of other and unspecified finger; S64.40XD Injury of digital nerve of unspecified finger, subsequent encounter; X58.XXXD Exposure to other specified factors, subsequent encounter
CPT/HCPCS: 99282

== ENCOUNTER 2018-10-23 19:57 | Emergency (ER) | payer MEDICAID ==
[~2018-10-23] VITALS: Ht 175.3 cm; Wt 95.3 kg
[~2018-10-23 19:57] MED LIST changes: +CEPHALEXIN500 MG ORAL; +NORCO 10-325 T1 EACH ORAL; +PERCOCET 5-3251 EACH ORAL
[2018-10-23] MEDS ORDERED: NKM (20:11)
[2018-10-23 20:15] VITALS: BP 152/90
--- NOTE | 2018-10-23 20:15 | NUR ---
ED Nurse Note: Patient walked into ED for a woundcheck on his left index finger, patient had the surgery about a month ago. pain started increasing a week ago
[2018-10-23] MEDS ORDERED: IBUPROFEN600 MG ORAL (20:22)
[2018-10-23 20:31] VITALS: BP_SYST 149; BP_SYST 152; BP_DIAS 88; BP_DIAS 90
--- NOTE | 2018-10-23 20:32 | NUR ---
ED Nurse Note: PT is Dc per ERMD order. pt is stable for DC. pt is alert and oriented times 4. pt left with all DC notes and prescriptions and belongings. pt is able to teach back DC notes. pt is instructed to follow up with primary MD as soon as possible. pt vital signs is stable. pt status, condition and vital signs reported to ERMD prior to DC. pt ID band removed.
--- NOTE | 2018-10-23 20:33 | Emergency Room Report ---
History of Present Illness General Chief Complaint: Wound Recheck/Suture Removal Source: Patient Present Illness HPI Patient presents with reports of tingling sensation to the right index finger also reports that he used to have a splint however that was removed in retirement Since patient's last presentation in April he reports that he has had surgery on the finger At [facility] After his incarceration He reports that he has been doing well with that however after being released recently now he is having tingling sensation and feels that as a splint has been removed he has increased discomfort with full flexion Denies any fevers or chills denies any redness or swelling Allergies: Coded Allergies: No Known Allergies (Unverified , 11/10/13) Patient History Past Medical History: see triage record Pertinent Family History: none Reviewed Nursing Documentation: PMH: Agreed; PSxH: Agreed Nursing Documentation-PMH Past Medical History: No History, Except For Hx Asthma: No - bronchitis Review of Systems All Other Systems: negative except mentioned in HPI Physical Exam Vital Signs Date Time Temp Pulse Resp B/P (MAP) Pulse Ox O2 Delivery O2 Flow Rate FiO2 10/23/18 20:08 98.2 83 18 152/90 99 Room Air Sp02 EP Interpretation: reviewed, normal General Appearance: well appearing, no apparent distress Head: normocephalic, atraumatic Eyes: bilateral eye PERRL, bilateral eye EOMI ENT: hearing grossly normal Respiratory: no retraction, no accessory muscle use Musculoskeletal: other - Some evidence of persisting swelling to the index finger at the MIP region no obvious erythema or fluctuance patient is able to flex the finger, however appears to be limited compared to the other side. Neurologic: alert, oriented x3, responsive Skin: other - As above Procedures Splinting Splinting : Consent: Verbal Location: Right index finger Pre-Made Type: metal Splint: Finger splint Pre-Proc Neuro Vasc Exam: normal Post-Proc Neuro Vasc Exam: normal Patient Tolerated: Well Complications: None Medical Decision Making Diagnostic Impression: Primary Impression: finger splint Additional Impression: neuropathy ER Course Patient describes fairly chronic neuropathic type pain ever since his initial injury Patient also requesting splints which has previously helped his discomfort Given the patient had surgery at [facility] on previous presentation For that this would be the most appropriate disposition and follow-up patient is provided the finger splint has requested Does not show any signs of infection and will have close outpatient follow-up Last Vital Signs Date Time Temp Pulse Resp B/P (MAP) Pulse Ox O2 Delivery O2 Flow Rate FiO2 10/23/18 20:08 98.2 83 18 152/90 99 Room Air Status: improved Disposition: HOME, SELF-CARE Condition: Stable Scripts Ibuprofen* (MOTRIN*) 600 Mg Tablet 600 MG ORAL Q8H PRN for For Pain, #20 TAB 0 Refills Prov: Augusto Begum DO 10/23/18 Referrals: Kurtis Walker [facility]. [facility] + [facility] Psych ER - Peds ER - Patient Instructions: Neuropathic Pain, Wound Check Additional Instructions: Patient is provided with the discharge instructions notified to follow up with primary doctor in the next 2-3 days otherwise return to the er with any worsening symptoms. Please note that this report is being documented using [employer] technology. This can lead to erroneous entry secondary to incorrect interpretation by the dictating instrument. Augusto Begum DO Oct 23, 2018 20:33
== END 2018-10-23 20:30 | disposition home or self-care (01) ==
LOC: EMR 20:30
DX: G62.9 Polyneuropathy, unspecified (principal)
CPT/HCPCS: 29130; 99283